=== PATIENT | male | born 1965 | race Caucasian/White ===

== ENCOUNTER → 2016-05-06 | Outpatient (CLI) | payer BC ==
[~2016-05-06] MED LIST: ACET325T49 PO; ASPI-983 PO; ATOR40TA70 PO; ATOR80TA76 PO; CEPH500C PO; CEPH500T PO; CIPR-225 PO; FISH1CAP15 PO; HYDR-3875 PO; ISOS30TA3 PO; KRIL1CAP15 PO; LEVO500T2 PO; METO-270 PO; OMEG-109 PO; ONDA4TAB8 PO; OXYC-197 PO; OXYC-471 PO; RANI150T15 PO; SULF1TAB35 PO; TAMS0.4C2 PO; TAMS0.4C98 PO; TICA90TA PO
--- OUTSIDE RECORDS SUMMARY | 2016-05-06 15:23 | XMS REPORT | Continuity of Care Document ---
Author Author [facility] Organization [facility] Address Unknown Phone Unavailable Care Team Providers Care Chief Digital Officer Name Role Phone CYNDI LOBATO DO PCP Insurance Providers Payer Name Policy Number Subscriber Name Relationship [facility] [id number] Sweetie Tian 01 Advance Directives Directive Response Recorded Date/Time Advance Directives No 11/28/15 8:28am Health Care Power of Correspondence Review Clerk No 11/28/15 8:28am Organ Donor No 11/28/15 8:28am Problems Active Problems Medical Problem Onset Date Status AMI (acute myocardial infarction) Unknown Acute Coronary artery disease Unknown Acute Dyspnea Unknown Acute Elevated d-dimer Unknown Acute Hematoma of groin Unknown Acute Hematuria Unknown Acute Hypocalcemia Unknown Acute Hypokalemia Unknown Acute Hypomagnesemia Unknown Acute Hypoxia Unknown Acute Left sided chest pain Unknown Acute Left ureteral stone Unknown Acute Proteinuria Unknown Acute Syncope Unknown Acute Urinary tract infection Unknown Acute Medications Current Home Medications Medication Dose Units Route Directions Days/Qty Instructions Start Date Isosorbide Mononitrate (Imdur) 30 Mg 30 Mg Oral Daily 06/20/15 Metoprolol Succinate 25 Mg 25 Mg Oral Daily 09/22/15 Atorvastatin Calcium 40 Mg 40 Mg Oral Bedtime 10/16/15 [place]-3 Fatty Acids/Fish Oil 1 Each 1,200 Mg Oral Daily 10/16/15 Ranitidine Hcl 150 Mg 150 Mg Oral Twice A Day 60 10/16/15 Tamsulosin Hcl 0.4 Mg 0.4 Mg Oral Daily 14 11/14/15 Levofloxacin 500 Mg 500 Mg Oral Daily 3 Days 11/28/15 Tamsulosin Hcl 0.4 Mg 0.4 Mg Oral Daily 14 11/28/15 Hydrocodone/Acetaminophen 1 Each 1-2 Each Oral Every 4HRS as needed for Pain 30 11/28/15 Past Home Medications Medication Directions Ordered Status Aspirin 81 Mg Tablet.dr, 81 Mg Oral Daily 05/03/15 Discontinued Krill/[place]-3/Dha/Epa/Lipids 1 Each Capsule, 1 Cap Oral Daily 05/03/15 Discontinued Ticagrelor 90 Mg Tablet, 90 Mg Oral Twice A Day 05/03/15 Discontinued Atorvastatin Calcium 80 Mg Tablet, 80 Mg Oral Bedtime 05/03/15 Discontinued Isosorbide Mononitrate (Imdur) 30 Mg Tab.er.24h, 30 Mg Oral Daily 05/03/15 Discontinued Isosorbide Mononitrate (Imdur) 30 Mg Tab.er.24h, 30 Mg Oral Daily 05/03/15 Discontinued Fish Oil/Dha/Epa 1 Each Capsule, 1 Cap Oral Daily 06/20/15 Discontinued Ticagrelor 90 Mg Tablet, 90 Mg Oral Twice A Day 06/20/15 Discontinued Atorvastatin Calcium 80 Mg Tablet, 80 Mg Oral Bedtime 06/20/15 Discontinued Ticagrelor 90 Mg Tablet, 90 Mg Oral Twice A Day 06/21/15 Discontinued Oxycodone Hcl/Acetaminophen 1 Each Tablet, 1 Each Oral Every 4HRS as needed for Pain 09/22/15 Discontinued Ondansetron 4 Mg Tab.rapdis, 4 Mg Oral Every 4HRS as needed for Nausea/ Vomiting 09/22/15 Discontinued Ciprofloxacin Hcl 500 Mg Tablet, 500 Mg Oral Twice A Day 09/22/15 Discontinued Cephalexin 500 Mg Tablet, 500 Mg Oral Three Times A Day 10/09/15 Discontinued Tamsulosin Hcl 0.4 Mg Cap.er.24h, 0.4 Mg Oral Daily 10/09/15 Discontinued Cephalexin 500 Mg Capsule, 500 Mg Oral Three Times A Day 10/16/15 Discontinued Oxycodone Hcl/Acetaminophen 1 Each Tablet, 1 Tab Oral Every 4HRS as needed for Pain 10/16/15 Discontinued Tamsulosin Hcl 0.4 Mg Cap.er.24h, 0.4 Mg Oral Daily@1200 10/16/15 Discontinued Ticagrelor 90 Mg Tablet, 90 Mg Oral Twice A Day 10/16/15 Discontinued Acetaminophen 325 Mg Tablet, 650 Mg Oral Daily as needed for Pain 10/16/15 Discontinued Sulfamethoxazole/Trimethoprim 1 Each Tablet, 1 Each Oral Twice A Day Discontinued Social History Social History Problem Response Recorded Date/Time Alcohol Use Denies Use 10/16/2015 4:21am Recreational Drug Use No 10/16/2015 4:21am Sexually Transmitted Disease No 11/28/2015 8:28am HIV/AIDS No 11/28/2015 8:28am Type Used Cigarettes 11/28/2015 1:21pm Recent Hopitalizations No 11/14/2015 4:47pm Sexually Transmitted Disease No 11/28/2015 8:28am Hospital Discharge Instructions No hospital discharge instructions. Plan of Care Discharge Date 01/23/16 6:00am Prescriptions See Medication Section Functional Status No functional status results. Allergies, Adverse Reactions, Alerts Allergen Type Severity Reaction Status Last Updated NKANo Known Allergies Allergy Unknown Active 11/04/06 Immunizations No immunization records. Vital Signs No known vital signs results. Results No known relevant diagnostic tests, laboratory data and/or discharge summary. Procedures No known history of procedures. Encounters Encounter Location Arrival/Admit Date Discharge/Depart Date Attending Provider Registered Clinic [facility] 01/22/16 8:12pm BERNABE BEE APRN
== END ==
LOC: LAB 15:19
PROVIDERS: ATTEND Family Medicine
DX: M79.641 Pain in right hand (principal); M79.642 Pain in left hand
CPT/HCPCS: 36415; 84550; 85652; 86038; 86430

== ENCOUNTER → 2016-12-30 | Outpatient (CLI) | payer BC ==
[~2016-12-30] MED LIST changes: +KRIL1CAP12 PO; -KRIL1CAP15 PO
--- NOTE | 2017-01-01 08:41 | STRESS TEST ---
DATE OF SERVICE: 12/30/2016 EXERCISE STRESS ECHOCARDIOGRAM REPORT REFERRING PHYSICIAN: Dr. Maldonado. INDICATION: Chest pain. Baseline heart rate is 58, baseline blood pressure 144/95, baseline EKG sinus rhythm with no ischemic changes. SUMMARY: The patient started exercising with a baseline heart rate, blood pressure and EKG mentioned above. He was able to exercise for a total of 11 minutes on standard Mian protocol, achieving maximum heart rate of 159, which is 94% of maximum expected heart rate. With peak exercise level, EKG was showing [address] depression in lead II, [address] depression in lead III and aVF, V4 and V5. Blood pressure at peak was 189/73. During recovery, heart rate and blood pressure returned to baseline, EKG returned to baseline. The patient continued to have chest pain throughout the test. Echocardiographic images were acquired and reviewed in the parasternal long axis, parasternal short axis, apical four chamber and apical two chamber views reveal the images showed normal left ventricular size with normal contractility with no ischemic changes. CONCLUSION: 1. Excellent exercise tolerance a total of 11 minutes on standard Mian protocol, total of 12.1 METS achieving 94% of maximum expected heart rate. 2. Baseline hypertension with hypertensive response to exercise, returned to baseline during recovery. 3. Nondiagnostic EKG changes with exercise, returned to baseline during recovery. 4. Normal echocardiographic images at rest and with peak exercise level with no ischemic changes. Job ID: [id number] DocumentID: [id number] Dictated Date: 12/30/2016 16:25:45 [place] Closer Date: 12/31/2016 13:22:10 Dictated By: KARENA LAGUNA MD
== END ==
LOC: RAD 13:30
PROVIDERS: ATTEND Internal Medicine Cardiovascular Disease
DX: R07.89 Other chest pain (principal); I25.10 Atherosclerotic heart disease of native coronary artery without angina pectoris; I10 Essential (primary) hypertension; E78.2 Mixed hyperlipidemia; R55 Syncope and collapse; F17.200 Nicotine dependence, unspecified, uncomplicated
CPT/HCPCS: 93306; 93351

== ENCOUNTER → 2016-12-30 | Outpatient (CLI) | payer BC ==
[2016-12-30 13:02] LABS: CREATINE KINASE 119 U/L (30-200)
[2016-12-30 13:08] LABS: MYOGLOBIN SERUM 49.5 NG/ML (10.0-92.0); TROPONIN I < 0.30 NG/ML (<0.30)
== END ==
LOC: LAB 12:20
PROVIDERS: ATTEND Internal Medicine Cardiovascular Disease
DX: E07.89 Other specified disorders of thyroid (principal); I25.10 Atherosclerotic heart disease of native coronary artery without angina pectoris; I10 Essential (primary) hypertension; E78.2 Mixed hyperlipidemia; R55 Syncope and collapse; F17.200 Nicotine dependence, unspecified, uncomplicated
CPT/HCPCS: 36415; 82550; 83874; 84484

== ENCOUNTER → 2018-04-21 | Outpatient (CLI) | payer BC ==
[~2018-04-21] MED LIST changes: -METO-270 PO; +METO-387 PO; -OXYC-197 PO; +OXYC1TAB87 PO; -RANI150T15 PO; +RANI150T46 PO
--- NOTE | 2018-04-21 15:47 | Diagnostic Imaging Report ---
EXAM: ABDOMEN/KUB 1 VIEW. INDICATION: Right flank pain. Hematoma. COMPARISON: Abdominal radiograph 12/12/2015. FINDINGS: Nonspecific bowel gas pattern. No large stool burden. No radiopaque body suspicious for renal stones. No acute osseous findings. IMPRESSION: Negative abdominal radiograph. Dictated by: Dictated on workstation # [id number]
== END ==
LOC: RAD 15:13
PROVIDERS: ATTEND Family Medicine
DX: T14.8XXA Other injury of unspecified body region, initial encounter (principal)
CPT/HCPCS: 74018

== ENCOUNTER → 2018-04-23 | Outpatient (CLI) | payer BC ==
--- NOTE | 2018-04-23 10:06 | Diagnostic Imaging Report ---
PROCEDURE: CT urinary tract, rule out kidney stone. TECHNIQUE: Multiple contiguous axial images were obtained through the abdomen and pelvis without the use of intravenous contrast. INDICATION: Right flank pain. Patient has history of kidney stones. Correlation is made with prior CT from 11/14/2015. Imaging through the lung bases demonstrate some minimal scarring or subsegmental atelectasis in the right middle lobe and lingula. No discrete liver mass is seen. The gallbladder is unremarkable. The pancreas and spleen are unremarkable. No adrenal mass is identified. There is a tiny approximately 1 mm nonobstructing calculus in the mid left kidney. No right-sided renal calculi are seen. There is no hydronephrosis. No definite ureteral calculi are seen. There is a tiny calcific density in the midline of the bladder approximately 1-2 mm suggestive of a recently passed calculus. No other bladder calculi are seen. Aorta and iliac vessels are heavily calcified but nonaneurysmal. Small and large bowel loops are normal caliber. There is no ascites. Prostate contains central calcifications. Bony structures are nonacute. IMPRESSION: 1. Tiny nonobstructing left renal calculus. In addition, there is a tiny bladder calculus likely from recently passed calculus. No ureteral calculi or hydronephrosis is seen. Dictated by: Dictated on workstation # [id number]
== END ==
LOC: RAD 08:38
PROVIDERS: ATTEND Family Medicine
DX: R10.9 Unspecified abdominal pain (principal); Z87.442 Personal history of urinary calculi
CPT/HCPCS: 74176

== ENCOUNTER → 2019-04-20 | Outpatient (CLI) | payer BC ==
[~2019-04-20] VITALS: Ht 180 cm; Wt 112.0 kg
[~2019-04-20] MED LIST changes: +CATHETER FLUSH 10 ML SYR IV PRN; +RANI-613 PO; -RANI150T46 PO
[2019-04-20 09:08] VITALS: BP 135/83
[2019-04-20 09:21] VITALS: BP 155/79
--- NOTE | 2019-04-20 20:01 | STRESS TEST ---
DATE OF SERVICE: 04/20/2019 EXERCISE MYOVIEW STRESS TEST REPORT REFERRING PHYSICIAN: Luisa Maldonado DO Baseline heart rate is 95, baseline blood pressure 135/85. Baseline EKG is sinus rhythm with no ischemic changes. In summary, the patient was injected with 10.97 mCi of technetium-99 Myoview and the resting images were obtained. Then, the patient started exercising with a baseline heart rate, blood pressure and EKG mentioned above. The patient was able to exercise for 10 minutes and 15 seconds on standard Mian protocol. With peak exercise level, EKG was showing no ischemic changes. Minimal nondiagnostic changes. Blood pressure at peak was 229/94. During recovery, heart rate and blood pressure returned to baseline. EKG returned to baseline. The resting and stress images were reviewed and compared in the short axis, horizontal long axis, and vertical long axis views. Review of the images showed good radiotracer uptake with no significant ischemia or infarction. SSS is 0. TID value 1.0. On the gated images, the left ventricle appeared to be in normal size with normal contractility. Calculated ejection fraction 62%. CONCLUSION: 1. Good exercise tolerance for a total of 10 minutes and 15 seconds on standard Mian protocol, total of 11.8 METS achieving 86% of maximum expected heart rate. 2. Hypertensive response to exercise with peak blood pressure 229/94. 3. No ischemia or infarction on SPECT images. 4. Minimal nondiagnostic EKG changes with exercise returned to baseline during recovery. 5. Normal left ventricular size with normal contractility. Calculated ejection fraction 62%. Job ID: [id number] DocumentID: [id number] Dictated Date: 04/20/2019 15:38:25 Grievance Manager Date: 04/20/2019 19:59:54 Dictated By: KARENA LAGUNA MD
== END ==
LOC: CARD 07:19
PROVIDERS: ATTEND Physician Assistant
DX: I25.10 Atherosclerotic heart disease of native coronary artery without angina pectoris (principal); R07.9 Chest pain, unspecified; I10 Essential (primary) hypertension; E78.2 Mixed hyperlipidemia
CPT/HCPCS: 78452; 93017; 93306